=== PATIENT | female | born 1970 | race Caucasian/White ===

== ENCOUNTER 2017-11-29 08:48 | Emergency (ER) | payer BC ==
[2017-11-29 09:04] VITALS: BP 135/89
--- NOTE | 2017-11-29 09:06 | UC ---
Throat Pain/Nasal Sadiq HPI - HPI Summary HPI Summary: 47 year old female wit sinus concerns. states over past week worsening sinus pressure, headache, and cough. Had body aches a few days ago like 3 days ago and upset stomach but that is now gone. [ End ] - History of Current Complaint Chief Complaint: UCRespiratory Stated Complaint: SINUS COMPLAINT Time Seen by Provider: 11/29/17 09:05 Hx Obtained From: Patient Hx Last Menstrual Period: 11/21/17 Onset/Duration: Gradual Onset Cough: Productive - Allergies/Home Medications Allergies/Adverse Reactions: Allergies Allergy/AdvReac Type Severity Reaction Status Date / Time Cephalexin [From Keflex] Allergy Intermediate Rash Verified 11/29/17 09:04 Sulfa Antibiotics Allergy Hives Verified 11/29/17 09:04 PMH/Surg Hx/FS Hx/Imm Hx Previously Healthy: Yes - Surgical History Surgical History: Yes Surgery Procedure, Year, and Place: UTERINE ABLATION - Family History Known Family History: Positive: None, Cardiac Disease, Hypertension, Diabetes - Social History Occupation: Employed Full-time Lives: With Family Alcohol Use: Rare Substance Use Type: None Smoking Status (MU): Never Smoked Tobacco - Immunization History Most Recent Influenza Vaccination: [id number] Review of Systems Constitutional: Fatigue ENT: Ear Ache, Nasal Discharge, Sinus Congestion, Sinus Pain/Tenderness Respiratory: Cough Musculoskeletal: Myalgia Is Patient Immunocompromised?: No All Other Systems Reviewed And Are Negative: Yes Physical Exam Triage Information Reviewed: Yes Appearance: Well-Appearing, No Pain Distress, Well-Nourished Vital Signs: Initial Vital Signs Temp 98.4 F 11/29/17 08:57 Pulse 107 11/29/17 08:57 Resp 16 11/29/17 08:57 BP 135/89 11/29/17 08:57 Pulse Ox 100 11/29/17 08:57 Vital Signs Reviewed: Yes Eye Exam: Normal ENT Exam: Normal ENT: Positive: Nasal congestion, Nasal drainage, TM dull, Sinus tenderness - b/ l frontal Dental Exam: Normal Neck exam: Normal Neck: Positive: 1 Respiratory Exam: Normal Cardiovascular Exam: Normal Musculoskeletal Exam: Normal Neurological Exam: Normal Psychological Exam: Normal Skin Exam: Normal Throat Pain/Nasal Course/Dx - Differential Dx/Diagnosis Differential Diagnosis/HQI/PQRI: Sinusitis, Tonsillitis, URI Provider Diagnoses: Sinusitis Discharge - Discharge Plan Condition: Good Disposition: HOME Prescriptions: Amoxicillin PO (*) [Amoxicillin 875 MG (*)] 875 mg PO BID #20 tab Patient Education Materials: Sinusitis (ED) Referrals: Derek Gama MD [Primary Care Provider] - 4 Days Additional Instructions: It appears you have viral sinusitis -- continue with supportive treatment and if your symptoms persist or worsen in the next 3-4 days then at that time you should start amoxicillin. For you ears consider DEBROX in the future for ear wax removal
== END 2017-11-29 09:19 | disposition home or self-care (01) ==
LOC: UCCORT 08:48
DX: J32.9 Chronic sinusitis, unspecified (principal); R53.83 Other fatigue; Z88.1 Allergy status to other antibiotic agents; Z88.2 Allergy status to sulfonamides
CPT/HCPCS: 99212; G0463